=== PATIENT | female | born 1955 | race Caucasian/White ===

== ENCOUNTER 2021-01-30 14:17 | Emergency (ER) | payer OTHER ==
[2021-01-30 14:30] VITALS: BP 123/80; PULSE 106; TEMP 99; BMI 32.0
[2021-01-30] MEDS ORDERED: ACETAMINOPHEN 325 MG TABLET (FP) PO ONE (14:48)
[2021-01-30] MEDS ORDERED: ACETAMINOPHEN 325 MG TABLET (FP) ONE (15:05)
== END 2021-01-30 15:47 | disposition home or self-care (01) ==
LOC: FER 14:17
DX: S52.124A Nondisplaced fracture of head of right radius, initial encounter for closed fracture (principal); W01.0XXA Fall on same level from slipping, tripping and stumbling without subsequent striking against object, initial encounter; Y93.01 Activity, walking, marching and hiking
CPT/HCPCS: 73070-TC-RT-FY; 73090-TC-RT-FY; 73110-TC-RT-FY; 73130-TC-RT-FY; 99283-25